=== PATIENT | female | born 1990 | race Caucasian/White ===

== ENCOUNTER 2025-01-24 15:52 | Emergency (ER) | payer MEDICAID ==
[~2025-01-24] VITALS: Ht 160 cm; Wt 50.0 kg
[2025-01-24 15:55] VITALS: TEMP 99
[2025-01-24] MEDS: IBUPROFEN 400 MG TABLET PO ONE (20:14)
[2025-01-24 20:30] VITALS: BP 128/87; PULSE 75; RESP 16; O2SAT 97
[2025-01-24] MEDS ORDERED: IBUP-1506 PO (21:16)
[2025-01-24] MEDS ORDERED: ACET-3385 PO (21:16)
[2025-01-24] MEDS ORDERED: CETI-450 PO (21:16)
== END 2025-01-24 21:24 | disposition home or self-care (01) ==
LOC: EMS 15:52
DX: H92.01 Otalgia, right ear (principal); F17.210 Nicotine dependence, cigarettes, uncomplicated; F15.90 Other stimulant use, unspecified, uncomplicated; F11.90 Opioid use, unspecified, uncomplicated; F19.90 Other psychoactive substance use, unspecified, uncomplicated; Z88.0 Allergy status to penicillin
CPT/HCPCS: 99282; Z7502; Z7610